=== PATIENT | female | born 1970 | race Caucasian/White ===

== ENCOUNTER 2017-10-22 17:09 | Day surgery (SDC) | payer OTHER ==
[~2017-10-22 17:09] MED LIST: CEFAZOLIN 1 GM INJ; CLINDAMYCIN 600 MG/50 ML D5W IVPB IVPB; DEXAMETHASONE 4 MG/ML 1 ML INJ; LIDOCAINE 2% (SDV) 5 ML INJ; METOCLOPRAMIDE 10 MG INJ; ONDANSETRON 4 MG INJ
[2017-10-22] MEDS ORDERED: MIDAZOLAM 1 MG/ML 2 ML INJ (18:50)
[2017-10-22] MEDS ORDERED: FENTAnyl 50 MCG/ML VIAL (18:51)
[2017-10-22] MEDS ORDERED: SUCCINYLCHOLINE CHLORIDE 100 MG/5 ML SYG IV (18:59)
[2017-10-22] MEDS ORDERED: PROPOFOL 20 ML (18:59)
[2017-10-22] MEDS: CLINDAMYCIN 900 MG/D5W (PMX) 50 ML IVPB (19:00)
[2017-10-22] MEDS ORDERED: BUPIVACAINE 0.5%/EPI (SDV) 30 ML INJ (19:09)
[2017-10-22] MEDS ORDERED: BUPIVACAINE 0.5% (SDV) 30 ML INJ (19:09)
[2017-10-22] MEDS ORDERED: hydrALAzine 20 MG INJ IV (20:00)
[2017-10-22] MEDS ORDERED: DIPHENHYDRAMINE 50 MG INJ IV (20:00)
[2017-10-22] MEDS ORDERED: HYDROmorphONE 1 MG/5 ML IV SYRINGE IV (20:00)
[2017-10-22] MEDS ORDERED: LABETALOL HCL 20MG INJ IV (20:00)
[2017-10-22] MEDS ORDERED: ONDANSETRON 4 MG INJ IV (20:00)
[2017-10-22] MEDS ORDERED: KETOROLAC 30 MG INJ IV (20:00)
[2017-10-22] MEDS ORDERED: MEPERIDINE 25 MG INJ IV (20:00)
[2017-10-22] MEDS ORDERED: FENTAnyl 50 MCG/ML VIAL IV (20:00)
[2017-10-22] MEDS: HYDROCODONE/APAP (5/325) TAB PO (20:33)
== END 2017-10-22 20:55 | disposition home or self-care (01) ==
LOC: SDS 17:09
DX: L72.0 Epidermal cyst (principal); E78.5 Hyperlipidemia, unspecified; I10 Essential (primary) hypertension
CPT/HCPCS: 11424; 71045; 88305; 93005

== ENCOUNTER 2019-01-18 19:54 | Emergency (ER) | payer OTHER ==
[2019-01-18] MEDS: SOD CHLORIDE 0.9% 1,000 ML IV (22:02)
[2019-01-18 22:06] LABS: ADD MAN DIFF? NO
[2019-01-18 22:11] LABS: WHITE BLOOD COUNT 6.5 10^3/ul (4.8-10.8)
[2019-01-18 22:11] LABS: BASOPHIL # 0.1 10^3/ul (0.0-0.1); BASOPHILS % 0.8 % (0.0-2.0); EOSINOPHILS # 0.1 10^3/ul (0.0-0.5); EOSINOPHILS % 1.7 % (0.0-7.0); HEMOGLOBIN 12.5 g/dl (12.0-16.0); LYMPHOCYTES # 2.6 10^3/ul (0.8-2.9); LYMPHOCYTES % 39.4 % (15.0-51.0); MEAN CORPUSCULAR HEMOGLOBIN 28.3 pg (29.0-33.0); MEAN CORPUSCULAR HGB CONC 33.8 g/dl (32.0-37.0); MEAN CORPUSCULAR VOLUME 83.7 fl (82.0-101.0); MEAN PLATELET VOLUME 9.5 fl (7.4-10.4); MONOCYTE # 0.4 10^3/ul (0.3-0.9); MONOCYTES % 5.5 % (0.0-11.0); NEUTROPHIL # 3.4 10^3/ul (1.6-7.5); NEUTROPHILS % 52.3 % (39.0-77.0); PLATELET COUNT 267 10^3/UL (140-415); RED BLOOD COUNT 4.42 10^6/ul (4.20-5.40); RED CELL DISTRIBUTION WIDTH 13.2 % (11.5-14.5)
[2019-01-18 22:29] LABS: ALANINE AMINOTRANSFERASE 23 IU/L (13-69); ALBUMIN 4.3 g/dl (3.3-4.9); ALBUMIN/GLOBULIN RATIO 1.48; ALKALINE PHOSPHATASE 67 IU/L (42-121); ANION GAP 8 (5-13); ASPARTATE AMINO TRANSFERASE 18 IU/L (15-46); BILIRUBIN,INDIRECT 0.7 mg/dl (0-1.1); BILIRUBIN,TOTAL 0.7 mg/dl (0.2-1.3); BLOOD UREA NITROGEN 13 mg/dl (7-20); CALCIUM 9.4 mg/dl (8.4-10.2); CARBON DIOXIDE 27 mmol/L (21-31); CHLORIDE 106 mmol/L (97-110); CREATININE 0.66 mg/dl (0.44-1.00); Estimated GFR > 60 mL/min (>60); GLUCOSE 103 mg/dl (70-220); LIPASE 54 U/L (23-300); POTASSIUM 3.7 mmol/L (3.5-5.1); SODIUM 141 mmol/L (135-144); TOTAL PROTEIN 7.2 g/dl (6.1-8.1)
== END 2019-01-18 23:17 | disposition home or self-care (01) ==
LOC: E/R 19:54
DX: K62.5 Hemorrhage of anus and rectum (principal); R40.2142 Coma scale, eyes open, spontaneous, at arrival to emergency department; R40.2252 Coma scale, best verbal response, oriented, at arrival to emergency department; R40.2362 Coma scale, best motor response, obeys commands, at arrival to emergency department; I10 Essential (primary) hypertension
CPT/HCPCS: 36415; 80053; 83690; 85025; 96360; 99284-25